=== PATIENT | male | born 1960 | race Caucasian/White ===

== ENCOUNTER 2016-11-28 01:04 | Emergency (ER) | payer OTHER ==
[~2016-11-28] VITALS: Ht 185.4 cm; Wt 83.9 kg
[~2016-11-28 01:04] MED LIST: ATORVASTATIN CA20 MG PO; ATORVASTATIN CA40 MG PO; BUFFERIN LOW DO81 MG PO; LOPRESSOR 12.12.5 MG PO
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
[2016-11-28 01:42] LABS: ABSOLUTE BASOPHIL COUNT 0 /CUMM (0.0-0.2); ABSOLUTE EOSINOPHIL COUNT 0.2 /CUMM (0.0-0.7); ABSOLUTE GRANULOCYTE CT 4.1 /CUMM (1.4-6.5); ABSOLUTE LYMPH COUNT 2.5 /CUMM (1.2-3.4); ABSOLUTE MONOCYTE COUNT 0.7 /CUMM (0.10-0.60); BASOPHIL % 0.4 % (0.0-2.0); EOSINOPHIL % 2.9 % (0-5); GRANULOCYTE % 54.8 % (42.2-75.2); HEMATOCRIT 41.9 % (42-52); MEAN CORPUSCULAR VOLUME 94.5 FL (80.0-94.0); MEAN PLATELET VOLUME 7.3 FL (7.4-10.4); PLATELET COUNT 376 /CUMM (130-400); RBC DISTRIBUTION WIDTH 13.1 % (11.5-14.5); RED BLOOD CELL CT 4.43 /CUMM (4.70-6.10); WHITE BLOOD CELL COUNT 7.4 /CUMM (4.8-10.8)
--- NOTE | 2016-11-28 01:51 | RADIOLOGY REPORT ---
EXAMINATION: XR PORTABLE CHEST CLINICAL INFORMATION: Chest pain COMPARISON: 09/11/2015 TECHNIQUE: Portable AP view of the chest was obtained. FINDINGS: Cardiac leads overlie the chest. The lungs are well expanded. There is no focal consolidation, edema, or effusion. No pneumothorax. The cardiomediastinal silhouette is within normal limits. No acute osseous abnormality. IMPRESSION: No acute pulmonary findings.
[2016-11-28 02:19] LABS: MEAN CORPUSCULAR HGB 33.5 PG (27.0-31.0); MEAN CORPUSCULAR HGB CONC 35.5 G/DL (33.0-37.0)
[2016-11-28 07:10] VITALS: BP 142/78
== END 2016-11-28 07:13 ==
LOC: ERH 01:04
PROVIDERS: Emergency Medicine
DX: R07.89 Other chest pain (principal)
CPT/HCPCS: 93005; 93010; 96374; 96375; J1885; J3490

== ENCOUNTER 2018-04-02 21:14 | Observation (INO) | payer OTHER ==
[~2018-04-02] VITALS: Ht 175.3 cm; Wt 102.1 kg
[~2018-04-02 21:14] MED LIST changes: +CYCLOBENZAPRINE5 M2 PO; +METOPROLOL SUCC25 M1 PO; +NITRO-BID1 GM TOP; +PLAVIX75 M1 PO; +TYLENOL WITH C1 EACH PO; +[UNRECOGNIZED DRUG - CODE] IV
[2018-04-02 21:45] LABS: ABSOLUTE BASOPHIL COUNT 0 /CUMM (0.0-0.2); ABSOLUTE EOSINOPHIL COUNT 0.2 /CUMM (0.0-0.7); ABSOLUTE GRANULOCYTE CT 3.6 /CUMM (1.4-6.5); ABSOLUTE LYMPH COUNT 2.6 /CUMM (1.2-3.4); ABSOLUTE MONOCYTE COUNT 0.7 /CUMM (0.10-0.60); BASOPHIL % 0.5 % (0.0-2.0); EOSINOPHIL % 2.3 % (0-5); GRANULOCYTE % 50.9 % (42.2-75.2); HEMATOCRIT 43.5 % (42-52); MEAN CORPUSCULAR HGB 33.4 PG (27.0-31.0); MEAN CORPUSCULAR HGB CONC 34.2 G/DL (33.0-37.0); MEAN CORPUSCULAR VOLUME 97.6 FL (80.0-94.0); MEAN PLATELET VOLUME 7.3 FL (7.4-10.4); PLATELET COUNT 350 /CUMM (130-400); RBC DISTRIBUTION WIDTH 13.3 % (11.5-14.5); RED BLOOD CELL CT 4.46 /CUMM (4.70-6.10); WHITE BLOOD CELL COUNT 7.1 /CUMM (4.8-10.8)
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
[2018-04-02] MEDS ORDERED: ASPIRIN81 M4 PO (23:46)
[2018-04-03 06:31] VITALS: BP 117/67
--- NOTE | 2018-04-03 07:27 | PN- Housestaff ---
Mateo Coronadonikolai 04/03/18 0727: Subjective Follow-up For: left shoulder pain Subjective: overnight pateint was in sinus rhythm heart rate ranging from 46-78. Patient states the pain in his left shoulder has resolved, he is not experiening any loss of strength or sensation, denies tingling or numbness in left arm and body. Review of Systems Constitutional: Denies: chills, diaphoresis, fever. Cardiovascular: Denies: chest pain, palpitations. Respiratory: Denies: cough, short of breath. Objective Last 24 Hrs of Vital Signs/I&O Vital Signs Date Time Temp Pulse Resp B/P B/P Pulse O2 O2 Flow FiO2 Mean Ox Delivery Rate 04/03 0631 97.8 67 20 117/67 95 Room Air 04/03 0038 Room Air 04/02 2303 97.8 73 18 122/72 04/02 2256 74 19 122/72 95 Room Air 04/02 2121 97.1 89 20 130/83 95 Room Air Intake & Output 04/03 1600 04/03 0800 04/03 0000 Intake Total 40 Output Total Balance 40 Intake, Oral 40 Patient 225 lb 225 lb Weight Physical Exam General Appearance: Alert, Oriented X3, Cooperative Neck: Supple, Full ROM Cardiovascular: Regular Rate, Normal S1, Normal S2 Lungs: Clear to Auscultation, Normal Air Movement Abdomen: Normal Bowel Sounds, Soft, No Tenderness Neurological: Normal Speech, Strength at 5/5 X4 Ext, Normal Tone, Sensation Intact, Cranial Nerves 3-12 NL Extremities: No Clubbing, No Cyanosis, No Edema Assessment/Plan Assessment: 58-year-old man with past medical history of CAD, MT status post PCI with JEN 2 (2004), history of unstable angina, hypertension, and hyperlipidemia presents to ED for evaluation of left-sided neck pain radiating to his left shoulder, arm, and chest. In talking the patient was discovered that patient has been not been taking his medications for the past 3 months because he has lost his insurance. In speaking with him on 04/03/2018 patient reports he does not have a neck pain but it is more of a left shoulder pain which he describes as burning in nature which radiates down his left arm and across his chest to the sternum. Problem list 1. Left shoulder pain 2. Atypical chest pain 3. Nicotine dependence 4. History of hypertension 5. History of hyperlipidemia #Left shoulder pain: The radiating nature of the pain could be indicative of a spinal source versus a regional source. However there is no bilateral involvement thus decreasing odds of origin of pain being from cervical spine. Patient does not have restricted range of motion in left shoulder, is nontender to touch, with preservation of strength and sensation. Has no history of trauma to left shoulder, source of pain unknown. Patient states pain has improved with nitroglycerin, producing a concern for pain being of cardiac origin -Cervical spine x-ray #Atypical chest pain: Initially an emergency department there was discussion that patient had chest pain, patient does report a suggestive subjective sensation of pain radiating from left shoulder to his sternum, pain which improves with nitroglycerin, along with his history of coronary artery disease status post MT and current smoking history patient is at high risk for ischemic cardiac disease. EKGs do not support new changes, troponins have been negative since admission cardiomyopathy stress testing for risk stratification -Discussed with patient the need for smoking cessation #Nicotine dependence: patient has a 50 year smoking history with approximately 2 packs per day. At this time patient states he will try to cut down on his smoking and does not having cravings is not requesting nicotine patch or gum -Discussed with patient importance of smoking cessation and the negative health impact from smoking #History of hyperlipidemia -Continue Lipitor 80 mg #History of hypertension -Continue metoprolol tartrate 12.5 mg twice daily Problem List: 1. Left shoulder pain Pain Ratin Pain Location: left shoulder Pain Goal: Remain pain free Pain Plan: tylenol, naproxen Tomorrow's Labs & Rationales: none Juanita Alfonso MD 04/03/18 1106: Attending MD Review Statement Attending Statement Attending MD Statement: examined this patient, discuss w/resident/PA/WHEEL ALIGNMENT MECHANIC, agreed w/resident/PA/WHEEL ALIGNMENT MECHANIC, reviewed EMR data (avail), discussed with nursing, discussed with case mgmt, amended to note Attending Assessment/Plan: Patient seen and examined. Resting comfortably and not in any acute distress. Denies any further discomfort. Presented with complaints of left shoulder pain radiating down the left arm and to the chest. Denies neck pain. Admits to some palpitations on and off. Denies shortness of breath. Denies cough. On examination he is not in any acute distress. On telemetry he remains in sinus rhythm. Heart sounds are regular. Lungs are clear to auscultation bilaterally. Abdomen soft and nontender. No peripheral edema. Normal range of motion of left shoulder. No erythema. No tenderness. Recommendations: -Awaiting cardiology evaluation regarding need for further ischemic workup. -Obtain x-ray of the left shoulder to rule out underlying degenerative joint disease. -Continue telemetry monitoring for now. -Obtain echocardiogram to rule out any new wall motion abnormalities that would suggest progression of his coronary disease compared to his last evaluation. -If no events overnight may consider outpatient stress testing unless otherwise recommended by the cardiology service.
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
[2018-04-03 14:23] VITALS: BP 114/70
--- NOTE | 2018-04-03 20:34 | RADIOLOGY REPORT ---
EXAMINATION: XR SHOULDER, LEFT CLINICAL INFORMATION: Left shoulder pain COMPARISON: Right shoulder radiographs 06/24/2017 and chest radiograph 03/30/2017 TECHNIQUE: AP external rotation, Grashey, scapular Y, and axillary views of the left shoulder. FINDINGS: The bones and soft tissues are normal. No fracture. Glenohumeral and acromioclavicular alignment is anatomic with normal joint space. No abnormal soft tissue calcifications. IMPRESSION: Normal left shoulder.
--- NOTE | 2018-04-03 21:06 | RADIOLOGY REPORT ---
EXAMINATION: XR CERVICAL SPINE CLINICAL INFORMATION: Radiculopathy with pain radiating to left arm. COMPARISON: None. TECHNIQUE: Single lateral view of the cervical spine. FINDINGS: Degenerative changes are present with disc space narrowing at C3-C4, C4-C5 and C5-C6. C7 is not well identified. No soft tissue swelling is seen. No fractures or subluxations are seen on this single view. IMPRESSION: Degenerative changes present as described above. The exam is a bit limited as it is a single view.
[2018-04-03 23:22] VITALS: BP 118/62
[2018-04-04 06:30] VITALS: BP 128/70
--- NOTE | 2018-04-04 07:27 | PN- Housestaff ---
See Addendum Subjective Follow-up For: Left shoulder pain Subjective: Overnight patient was alternating between sinus bradycardia rhythm normal sinus rhythm, heart rate ranged between 53-68 overnight. Patient has no complaint at this morning, states pain has resolved 0 out of 10. Discussed findings of x- rays of left shoulder and cervical spine with patient, patient endorses he has a history of lifting car seats over his head/resting them on his head while transferring. Patient endorses he does not have insurance at this time and only medications he has at home are Crestor, Plavix, aspirin his PCP is aware. Patient states he has tried to get [employer] coverage before but was unsuccessful. Review of Systems Constitutional: Denies: chills, diaphoresis, fever. Cardiovascular: Denies: chest pain, palpitations. Respiratory: Denies: cough, short of breath. Gastrointestinal: Denies: abdominal pain, changes in stool. Objective Last 24 Hrs of Vital Signs/I&O Vital Signs Date Time Temp Pulse Resp B/P B/P Pulse O2 O2 Flow FiO2 Mean Ox Delivery Rate 04/04 0630 98.2 55 18 128/70 94 Room Air 04/04 0000 Room Air 04/03 2322 98.1 67 16 118/62 93 Room Air 04/03 2128 62 120/68 04/03 2128 62 120/68 04/03 1423 98.0 71 18 114/70 94 04/03 1123 68 148/74 Intake & Output 04/04 0800 04/04 0000 04/03 1600 Intake Total 220 220 800 Output Total Balance 220 220 800 Intake, Oral 220 220 800 Physical Exam General Appearance: Alert, Oriented X3, Cooperative Cardiovascular: Regular Rate, Normal S1, Normal S2 Lungs: Clear to Auscultation, Normal Air Movement Abdomen: Normal Bowel Sounds, Soft, No Tenderness Neurological: Strength at 5/5 X4 Ext, Sensation Intact, Cranial Nerves 3-12 NL Assessment/Plan Assessment: 58-year-old man with past medical history of CAD, CA status post PCI with JEN 2 (2004), history of unstable angina, hypertension, and hyperlipidemia presents to ED for evaluation of left-sided neck pain radiating to his left shoulder, arm, and chest. In talking the patient was discovered that patient has been not been taking his medications for the past 3 months because he has lost his insurance. In speaking with him on 04/03/2018 patient reports he does not have a neck pain but it is more of a left shoulder pain which he describes as burning in nature which radiates down his left arm and across his chest to the sternum. Problem list 1. Cervical Radiculopathy 2. Atypical chest pain 3. Nicotine dependence 4. History of hypertension 5. History of hyperlipidemia #Left Cervical Spine radiculopathy: The radiating nature of the pain could be indicative of a spinal source versus a regional source. However there is no bilateral involvement thus decreasing odds of origin of pain being from cervical spine. Patient does not have restricted range of motion in left shoulder, is nontender to touch, with preservation of strength and sensation. Has no history of trauma to left shoulder, source of pain unknown. Patient states pain has improved with nitroglycerin, producing a concern for pain being of cardiac origin. X-ray of left shoulder on 04/03/2018 is negative. X-ray of cervical spine 04/03/2018 shows disc space narrowing between C3-C4, C4-C5, C5-C6 with degenerative changes. #Atypical chest pain: Initially an emergency department there was discussion that patient had chest pain, patient does report a suggestive subjective sensation of pain radiating from left shoulder to his sternum, pain which improves with nitroglycerin, along with his history of coronary artery disease status post CA and current smoking history patient is at high risk for ischemic cardiac disease. EKGs do not support new changes, troponins have been negative since admission cardiomyopathy. LVEF 55-60%, normal LV systolic function. stress testing for risk stratification -Discussed with patient the need for smoking cessation #Nicotine dependence: patient has a 50 year smoking history with approximately 2 packs per day. At this time patient states he will try to cut down on his smoking and does not having cravings is not requesting nicotine patch or gum -Discussed with patient importance of smoking cessation and the negative health impact from smoking #History of hyperlipidemia -Continue Lipitor 80 mg -Will discharge on Repatha 140mg Q2 weeks. Patient states he has tried Crestor before which did not reduce his cholesterol levels, levels were only controlled after starting Repatha. #History of hypertension -Continue metoprolol tartrate 6.25 mg twice daily at home CODE STATUS: Full code Diet: Heart healthy DVT prophylaxis: Lovenox We will have case management discussed insurance options with patient. Will discharge patient home today with referral for Dr. Bernardo to set up as needed PCP , will send patient home with Repatha 140 mg every 2 weeks, we will continue home medications. Problem List: 1. Left shoulder pain Pain Ratin Pain Location: n/a Pain Goal: Remain pain free Pain Plan: none Tomorrow's Labs & Rationales: none
[2018-04-04] MEDS ORDERED: METOPROLOL TART25 M1 PO (08:18)
--- NOTE | 2018-04-04 08:26 | PN- Cardiology ---
Subjective Subjective: Telemetry reviewed. Sinus rhythm throughout. Patient has no complaints of chest pains. Admitting symptoms were addressed and related to probably cervical discogenic disease. Patient is very active and has no chest discomfort on exertion. Objective Vital Signs and I&Os Vital Signs Date Time Temp Pulse Resp B/P B/P Pulse O2 O2 Flow FiO2 Mean Ox Delivery Rate 04/04 0630 98.2 55 18 128/70 94 Room Air 04/04 0000 Room Air 04/03 2322 98.1 67 16 118/62 93 Room Air 04/03 2128 62 120/68 04/03 2128 62 120/68 04/03 1423 98.0 71 18 114/70 94 04/03 1123 68 148/74 Intake & Output 04/04 0000 04/03 0000 Intake Total 220 220 800 40 Output Total Balance 220 220 800 40 Intake, Oral 220 220 800 40 Patient 225 lb 225 lb Weight Physical Exam: On general exam he appeared comfortable Head normocephalic atraumatic Eyes sclera anicteric conjunctiva showed no pallor extraocular muscles were normal Neck no jugular venous tension no thyroid masses no palpable nodes Chest lungs were clear bilaterally Heart regular rhythm with a 1/6 systolic murmur Abdomen soft no organomegaly bowel sounds normal Extremities no clubbing cyanosis or edema Neurological no gross motor or sensory deficits Current Medications: Current Medications Sig/Isaias Start time Last Medication Dose Route Stop Time Status Admin Acetaminophen 650 MG Q6P PRN 04/02 2315 AC 04/03 PO 0525 Aspirin 81 MG DAILY 04/03 09 AC 04/03 PO 1122 Atorvastatin Calcium 80 MG 1700 04/03 1700 AC 04/03 PO 1555 Clopidogrel Bisulfate 75 MG DAILY 04/03 0900 AC 04/03 PO 1123 Enoxaparin Sodium 40 MG DAILY 04/03 0900 AC 04/03 SC 1124 Metoprolol Tartrate 12.5 MG BID 04/02 2231 AC 04/03 PO 2128 Naproxen 500 MG DAILY NEEDED PRN 04/03 1115 AC 04/03 PO 1333 Nitroglycerin 0.5 GM Q6 04/02 2245 AC 04/04 TOP 0052 Ranolazine 500 MG BID 04/03 1431 AC 04/03 PO 2128 Results Last 48 Hrs of Labs/Mics: Laboratory Tests 04/03/18 0630: Anion Gap 4 L, Estimated GFR > 60, BUN/Creatinine Ratio 20.0 04/03/18 0050: Troponin I < 0.01 04/02/18 2135: Anion Gap 9, Estimated GFR > 60, BUN/Creatinine Ratio 17.5, Glucose 94, Calcium 9.1, Total Bilirubin 0.4, AST 19, ALT 27, Alkaline Phosphatase 78, Troponin I < 0.01, Total Protein 7.1, Albumin 3.9, Globulin 3.2, Albumin/Globulin Ratio 1.2, Lipase 80, CBC w Diff NO MAN DIFF REQ, RBC 4.46 L, MCV 97.6 H, MCH 33.4 H, MCHC 34.2, RDW 13.3, MPV 7.3 L, Gran % 50.9, Lymphocytes % 36.3, Monocytes % 10.0 H, Eosinophils % 2.3, Basophils % 0.5, Absolute Granulocytes 3.6, Absolute Lymphocytes 2.6, Absolute Monocytes 0.7 H, Absolute Eosinophils 0.2, Absolute Basophils 0 Assessment/Plan Assessment/Plan In summary this 58-year-old gentleman has a following problems 1. Chest discomfort with a known history of angina 2. Coronary artery disease with prior myocardial infarction and prior PCI in 2004 (JEN x2) and 100 occlusions in the nondominant RCA and distal left circumflex by cardiac catheterization March 2017 3. Nicotine dependence 4. History of mild ischemic heart myopathy with inferior wall hypokinesis 5. Hyperlipidemia 6. Hypertension Echocardiogram was reviewed. Normal left ventricular systolic function with mild concentric hypertrophy and mild left atrial enlargement. Left ventricular ejection fraction 55-60%. His chest discomfort on admission was atypical probably related to cervical discogenic disease. He is stable on current medications and could be discharged today with follow-up with his primary light adjuster. Continue telemetry? No
--- NOTE | 2018-04-04 08:27 | Patient Discharge Instructions ---
Discharge Instructions General Discharge Information You were seen/treated for: Left arm pain Watch for these problems: Fever, chest pain, palpitations, shortness of breath Special Instructions: Follow PCP and your assistant superintendent Diet Continue normal diet: Yes Recommended Diet: Heart Healthy Activity Full Activity/No Limits: Yes Acute Coronary Syndrome Inclusion Criteria At DC or during hospital stay patient has or had the following: ACS DIAGNOSIS No Discharge Core Measures Meds if any: Prescribed or Continued at Discharge Meds if any: NOT Prescribed or Continued at Discharge Congestive Heart Failure Inclusion Criteria At DC or during hospital stay patient has or had the following: CHF DIAGNOSIS No Discharge Core Measures Meds if any: Prescribed or Continued at Discharge Meds if any: NOT Prescribed or Continued at Discharge Cerebrovascular accident Inclusion Criteria At DC or during hospital stay patient has or had the following: CVA/TIA Diagnosis No Discharge Core Measures Meds if any: Prescribed or Continued at Discharge Meds if any: NOT Prescribed or Continued at Discharge Venous thromboembolism Inclusion Criteria VTE Diagnosis No VTE Type NONE VTE Confirmed by (Test) NONE Discharge Core Measures - Per Current guidelines, there needs to be overlap - treatment for the first 5 days of Warfarin therapy. - If discharged on Warfarin prior to 5 days of - overlap therapy, the patient will need to be - assessed for post discharge needs including - *Post discharge parental anticoagulation - *Warfarin and/or parental anticoagulation education - *Follow up date to check INR post discharge At least 5 days overlap therapy as Inpatient No Meds if any: Prescribed or Continued at Discharge Note: Overlap Therapy is Warfarin and Anticoagulant Meds if any: NOT Prescribed or Continued at Discharge
[2018-04-04 08:36] VITALS: BP 128/70
--- NOTE | 2018-04-04 08:37 | ECHOCARDIOGRAM REPORT ---
WALDO RIVERA Age: 58 : 1960 Gender: M Exam Date: 04/03/2018 16:17 Exam Location: [address] Ht (in): 69 Wt (lb): 225 BSA: 2.26 BP: 148 / 74 Ordering Physician: Jose Cruz Coronado MD Referring Physician: Vinicio Ramos M.D. Technologist: Ashley Corona RDCS Room Number: 173 Indications: Hypertension Rhythm: Sinus Technical Quality: fair FINDINGS Left Ventricle Normal size left ventricle. Left ventricular wall thickness mildly increased. Normal left ventricular ejection fraction estimated at 55-60%. Right Ventricle Normal right ventricular size and function. Right Atrium Normal right atrial size. Left Atrium Mild left atrial dilatation. Mitral Valve Mild thickening/calcification of the anterior mitral valve leaflet. Mild mitral annular calcification. Mild mitral regurgitation. Aortic Valve Aortic valve is normal in structure and function. Tricuspid Valve Tricuspid valve is normal in structure and function. Trace to mild tricuspid regurgitation. Pulmonic Valve Pulmonic valve not well visualized, grossly normal. Pericardium Minimal pericardial effusion (normal variant). Great Vessels Normal size aortic root. CONCLUSIONS Normal left ventricular systolic function with mild concentric hypertrophy. Mild left atrial enlargement. No significant valvular abnormalities noted. Lg Kerr M.D. (Electronically Signed) Final Date: 04 April 2018 08:33 MEASUREMENTS (Male / Female) Normal Values 2D ECHO LV Diastolic Diameter PLAX 4.8 cm 4.2 - 5.9 / 3.9 - 5.3 cm LV Systolic Diameter PLAX 3.3 cm 2.1 - 4.0 cm LV Fractional Shortening PLAX 31.3 % 25 - 46 % LV Ejection Fraction 2D Teich 59.0 % IVS Diastolic Thickness 1.3 cm LVPW Diastolic Thickness 1.3 cm LV Relative Wall Thickness 0.5 RV Internal Dim ED PLAX 2.9 cm 1.9 - 3.8 cm LVOT Diameter 1.9 cm Aortic Root Diameter 3.2 cm LA Systolic Diameter LX 4.8 cm 3.0 - 4.0 / 2.7 - 3.8 cm LA Volume 42.0 cm 18 - 58 / 22 - 52 cm Ascending Aorta Diameter 2.8 cm DOPPLER AV Peak Velocity 123.0 cm/s AV Peak Gradient 6.1 mmHg AV Mean Velocity 88.5 cm/s AV Mean Gradient 4.0 mmHg AV Velocity Time Integral 29.4 cm LVOT Peak Velocity 100.0 cm/s LVOT Peak Gradient 4.0 mmHg LVOT Mean Velocity 69.3 cm/s LVOT Mean Gradient 2.0 mmHg LVOT Velocity Time Integral 23.1 cm LVOT Stroke Volume 65.5 cm AV Area Cont Eq vti 2.2 cm AV Area Cont Eq pk 2.3 cm MV Peak Velocity 120.0 cm/s MV Peak Gradient 5.8 mmHg MV Mean Velocity 57.4 cm/s MV Mean Gradient 2.0 mmHg Mitral E Point Velocity 83.4 cm/s Mitral A Point Velocity 98.2 cm/s Mitral E to A Ratio 0.8 MV PHT Velocity 90.3 cm/s MV Deceleration [place] 202.0 cm/s MV Pressure Half Time 134.1 ms MV Area PHT 1.6 cm MV Deceleration Time 209.0 ms TR Peak Velocity 83.4 cm/s TR Peak Gradient 2.8 mmHg Right Atrial Pressure 5.0 mmHg Pulmonary Artery Systolic Pressure 7.8 mmHg Right Ventricular Systolic Pressure 7.8 mmHg PV Peak Velocity 116.0 cm/s PV Peak Gradient 5.4 mmHg PV Mean Velocity 78.0 cm/s PV Mean Gradient 3.0 mmHg PV Velocity Time Integral 25.6 cm LV E' Lateral Velocity 9.7 cm/s Mitral E to LV E' Lateral Ratio 8.6 LV E' Septal Velocity 4.9 cm/s Mitral E to LV E' Septal Ratio 17.1
[2018-04-04] MEDS ORDERED: REPATHA SU140 MG/1 M SC (09:29)
== END 2018-04-04 13:00 ==
LOC: ERH 21:14 → 1NO 23:31 → ERHI 23:31 → 1NO 04-03 00:23 → ENPENDDIS 04-04 09:06 → 1NO 04-04 13:00
PROVIDERS: Internal Medicine
DX: R07.89 Other chest pain (principal); Z79.82 Long term (current) use of aspirin; I25.10 Atherosclerotic heart disease of native coronary artery without angina pectoris; I25.2 Old myocardial infarction; F17.200 Nicotine dependence, unspecified, uncomplicated; I25.5 Ischemic cardiomyopathy; E78.5 Hyperlipidemia, unspecified; I10 Essential (primary) hypertension; Z95.5 Presence of coronary angioplasty implant and graft; E66.9 Obesity, unspecified
CPT/HCPCS: 36415; 36592; 72020; 73030-LT; 82436; 93005; 93010; 93306; 96372; G0378; J1650; J3490